=== PATIENT | female | born 1990 | race Caucasian/White ===

== ENCOUNTER → 2017-09-25 | Outpatient (REF) | payer BC ==
[2017-09-27 00:37] LABS: Lyme Disease IgG/IgM Antibodie <0.91 ISR (0.00-0.90); Lyme Disease IgM Ab Quantitati <0.80 index (0.00-0.79)
== END ==
LOC: M SFHCSACK 10:54
DX: Z86.19 Personal history of other infectious and parasitic diseases (principal)
CPT/HCPCS: 86617